=== PATIENT | male | born 1990 | race Caucasian/White ===

== ENCOUNTER 2017-04-25 08:41 | Emergency (ER) | payer OTHER ==
[2017-04-25 09:00] VITALS: BP 129/67; PULSE 87; RESP 16; TEMP 97.2
--- NOTE | 2017-04-25 09:35 | ED ---
Back Pain HPI - General Chief Complaint: Back Pain/Injury Stated Complaint: Hx L1 Fx, tingling in left leg Time Seen by Provider: 04/25/17 09:06 Source: patient, RN notes reviewed, old records reviewed Limitations: no limitations - History of Present Illness Initial Comments: 26-year-old male presents emergency department today chief complaint of increased lower back pain, and numbness and tingling down his left leg. Patient reports that he was sledding on April 12, and he has signs. He reports that he continue back pain so he was evaluated which [facility] on April 15. He told me is an L1 compression fracture. He reports he's been out of his pain medication since that time, he is supposed to follow-up with his primary care provider. Is not discharged any braces. Patient reports that yesterday at work he was working [email or web address], and did a lot of twisting and lifting. He states that today he complains of worsening pain and some weakness in his left leg. He denies any saddle anesthesias. Patient reports that he's had no fever or chills. Patient states that he has an appointment with his primary care doctor in the next 4 days. Patient denies any other associated symptoms. He is concerned with the worsening numbness and tingling in that that needed to be reevaluated. Patient reports that he did walk here. - Related Data Previous Rx's Medication Instructions Recorded Dexamethasone 0.75 mg PO DAILY #12 tab 04/25/17 Ibuprofen [Motrin] 800 mg PO TID #20 tab 04/25/17 Allergies Allergy/AdvReac Type Severity Reaction Status Date / Time Penicillins Allergy Anaphylaxis Verified 04/25/17 09:00 Sulfa (Sulfonamide Allergy Anaphylaxis Verified 04/25/17 09:00 Antibiotics) Review of Systems ROS Statement: Those systems with pertinent positive or pertinent negative responses have been documented in the HPI. ROS Other: All systems not noted in ROS Statement are negative. Past Medical History Additional Past Medical History / Comment(s): kidney stones History of Any Multi-Drug Resistant Organisms: None Reported Past Surgical History: No Surgical Hx Reported Past Psychological History: No Psychological Hx Reported Smoking Status: Current every day smoker Past Alcohol Use History: Rare Past Drug Use History: None Reported General Exam - General Exam Comments Initial Comments: 26-year-old male. No distress. Limitations: no limitations General appearance: alert, in no apparent distress Head exam: Present: atraumatic, normocephalic, normal inspection Eye exam: Present: normal appearance, PERRL, EOMI. Absent: scleral icterus, conjunctival injection, periorbital swelling ENT exam: Present: normal exam, mucous membranes moist Neck exam: Present: normal inspection. Absent: tenderness, meningismus, lymphadenopathy Respiratory exam: Present: normal lung sounds bilaterally. Absent: respiratory distress, wheezes, rales, rhonchi, stridor Cardiovascular Exam: Present: regular rate GI/Abdominal exam: Present: soft, normal bowel sounds. Absent: distended, tenderness, guarding, rebound, rigid Extremities exam: Present: normal inspection, full ROM, normal capillary refill , other (Full ROM and strength and rOM of bilateral lower extremities. Patient reports that he feels as if Left leg is weaker, but no change in strength noted. ). Absent: tenderness, pedal edema, joint swelling, calf tenderness Back exam: Present: normal inspection, full ROM, vertebral tenderness (Lumbar spinal tenderness, left sided lumbar paraspinal tenderness.) Neurological exam: Present: alert, oriented X3, CN II-XII intact Psychiatric exam: Present: normal affect, normal mood Skin exam: Present: warm, dry, intact, normal color. Absent: rash Course Vital Signs 04/25/17 08:57 Temperature 97.2 F L Pulse Rate 87 Respiratory 16 Rate Blood Pressure 129/67 O2 Sat by Pulse 99 Oximetry Medical Decision Making - Medical Decision Making 26-year-old male presents emergency department today chief complaint of increased lower back pain, and numbness and tingling down his left leg. Patient reports that he was sledding on April 12, and he has signs. He reports that he continue back pain so he was evaluated which [facility] on April 15. He told me is an L1 compression fracture. He reports he's been out of his pain medication since that time, he is supposed to follow-up with his primary care provider. Patient reports that yesterday at work he was working [email or web address], and did a lot of twisting and lifting. He states that today he complains of worsening pain and some weakness in his left leg. Patient walked to ED for evaluation. Full strengthnoted in bilateral lower extremity and sensation intact. He denies saddle anesthesias. Patient has no foot drop or other neurodeficits. Patient xray shows no acute abnormality. Patient informed from results of CT scan at [facility] that was requested and repeat image today. Dsicussed starting patient on steroids for neuropathy symptom, as well as antifinflammatory mediation. Patient requests excuse note for probation. Patient discharged with follow up with crop specialist and PCP. - Radiology Data Radiology results: report reviewed CT report from [facility] on 04/17 shows : Mild disc bulging seen lumbar spine with mild anterior thecal sac compression discussed above. No stenosis present. May be minimal exaggeration of very mild wedge deformity of L1 no acute fracture however is identified. Correlate with location of patient's pain. Today lumbar spine xray shows no acute abnormalities. Disposition Clinical Impression: Lumbar back pain with radiculopathy affecting left lower extremity Disposition: HOME SELF-CARE Condition: Good Instructions: Acute Low Back Pain (ED) Additional Instructions: Patient should follow-up with back specialist. Return to the emergency department if any alarming signs or symptoms occur. Prescriptions: Dexamethasone 0.75 mg PO DAILY #12 tab Ibuprofen [Motrin] 800 mg PO TID #20 tab Referrals: None,Stated [Primary Care Provider] - 1-2 days Davie Fuentes MD [REFERRING] - 1-2 days Frieda Ferraro MD [STAFF PHYSICIAN] - 1-2 days Amado Suarez DO [Doctor of Osteopathic Medicine] - 1-2 days Time of Disposition: 11:12
--- NOTE | 2017-04-25 10:39 | XR ---
EXAMINATION TYPE: XR lumbar spine 2 or 3V , 3 VIEWS DATE OF EXAM ORDERED: 04/25/2017 HISTORY: Pain. COMPARISON: None. FINDINGS: Vertebral body height and alignment are maintained. There is no spondylolysis or spondylol isthesis. The facets are unremarkable. The pedicles are intact. IMPRESSION: NO ACUTE OSSEOUS LESION.
== END 2017-04-25 11:22 | disposition home or self-care (01) ==
LOC: EC 08:41
DX: M54.16 Radiculopathy, lumbar region (principal); M51.16 Intervertebral disc disorders with radiculopathy, lumbar region; F17.200 Nicotine dependence, unspecified, uncomplicated; Z88.0 Allergy status to penicillin; Z88.2 Allergy status to sulfonamides
CPT/HCPCS: 72100; 99284

== ENCOUNTER 2017-06-27 00:18 | Emergency (ER) | payer OTHER ==
[2017-06-27 00:26] VITALS: RESP 16
--- NOTE | 2017-06-27 00:51 | ED ---
Psych HPI - General Chief Complaint: Psychiatric Symptoms Stated Complaint: Depression Time Seen by Provider: 06/27/17 00:35 Source: patient Mode of arrival: ambulatory - History of Present Illness Initial Comments: 26 year-old male patient presents to the emergency department today with suicidal ideation. Patient states that recently he has been feeling more down and depressed. He states that he has been thinking about killing himself. He states that today he made his friend remove the gun that was in the closet where he stays. He states that he had no specific plan to use it but was concerned that he may be tempted. He denies any hallucinations. Denies any alcohol or drug use. Denies any recent use of antidepressant medication. States he is sleeping, eating, and drinking without difficulty. Denies any previous suicide attempt. Denies any previous hospital admissions for similar symptoms. Denies any current physical symptoms. Patient denies any recent rash , fever, chills, shortness breath, chest pain, abdominal pain, nausea, vomiting , diarrhea, constipation, back pain, numbness, tingling, dizziness, weakness, hematuria, dysuria, urinary urgency, urinary frequency, headache, visual changes , or any other complaints. - Related Data Home Medications Medication Instructions Recorded Confirmed Aspirin 81 mg PO ONCE 05/24/17 05/24/17 Ibuprofen 400 mg PO ONCE 05/24/17 05/24/17 Allergies Allergy/AdvReac Type Severity Reaction Status Date / Time Penicillins Allergy Anaphylaxis Verified 05/24/17 09:14 Sulfa (Sulfonamide Allergy Anaphylaxis Verified 05/24/17 09:14 Antibiotics) Review of Systems ROS Statement: Those systems with pertinent positive or pertinent negative responses have been documented in the HPI. ROS Other: All systems not noted in ROS Statement are negative. Past Medical History Additional Past Medical History / Comment(s): kidney stones History of Any Multi-Drug Resistant Organisms: None Reported Past Surgical History: No Surgical Hx Reported Past Psychological History: Depression Smoking Status: Current every day smoker Past Alcohol Use History: Rare Past Drug Use History: None Reported General Exam Limitations: no limitations General appearance: alert, in no apparent distress, other (This is a well- developed, well-nourished male patient in no acute distress. Vital signs upon presentation are temperature 96.9F, pulse 97, respirations 16, blood pressure 155/95, pulse ox 98% on room air.) Eye exam: Present: normal appearance, PERRL, EOMI. Absent: scleral icterus, conjunctival injection, periorbital swelling ENT exam: Present: normal exam, normal oropharynx, mucous membranes moist Respiratory exam: Present: normal lung sounds bilaterally. Absent: respiratory distress, wheezes, rales, rhonchi, stridor Cardiovascular Exam: Present: regular rate, normal rhythm, normal heart sounds. Absent: systolic murmur, diastolic murmur, rubs, gallop, clicks GI/Abdominal exam: Present: soft, normal bowel sounds. Absent: distended, tenderness, guarding, rebound, rigid Neurological exam: Present: alert, oriented X3, CN II-XII intact Psychiatric exam: Present: depressed Skin exam: Present: warm, dry, intact, normal color. Absent: rash Course Vital Signs 06/27/17 00:22 Temperature 96.9 F L Pulse Rate 97 Respiratory 16 Rate Blood Pressure 155/95 O2 Sat by Pulse 98 Oximetry Medical Decision Making - Medical Decision Making 26-year-old male patient presented to the emergency department today for evaluation of depression and suicidal ideation. Patient denied any specific plan to take his life. Denies any homicidal thoughts. Patient was cleared medically and did have an evaluation by emergency psychiatric services. They did discuss the case with the psychiatrist who feels the patient does not currently meet inpatient criteria. Patient was given a list of outpatient referrals and has a plan to follow up with [facility] on Thursday. We did discuss return parameters in detail. He is instructed to return here immediately if his symptoms change or worsen at all. He is instructed to follow-up with his primary care physician as well. He is instructed to return here for any other new, worsening, or concerning symptoms. He verbalizes understanding and agrees with this plan. - Lab Data Lab Results 06/27/17 Range/Units 01:07 Urine Opiates Screen Not Detected (NotDetected) Ur Oxycodone Screen Not Detected (NotDetected) Urine Methadone Screen Not Detected (NotDetected) Ur Propoxyphene Screen Not Detected (NotDetected) Ur Barbiturates Screen Not Detected (NotDetected) U Tricyclic Antidepress Not Detected (NotDetected) Ur Phencyclidine Scrn Not Detected (NotDetected) Ur Amphetamines Screen Not Detected (NotDetected) U Methamphetamines Scrn Not Detected (NotDetected) U Benzodiazepines Scrn Not Detected (NotDetected) Urine Cocaine Screen Not Detected (NotDetected) U Marijuana (THC) Screen Not Detected (NotDetected) Disposition Clinical Impression: Suicidal ideation Disposition: HOME SELF-CARE Condition: Good Instructions: Depression (ED), Suicide Prevention for Adults (ED) Additional Instructions: Follow-up outpatient with mental health services. Return here immediately for any change or worsening symptoms. Referrals: Davie Fuentes MD [Primary Care Provider] - 1-2 days Time of Disposition: 02:29
[2017-06-27 01:32] LABS: Amphetamine Screen,Urine Not Detected (NotDetected); Barbiturate Screen,Urine Not Detected (NotDetected); Benzodiazepines Screen,Urine Not Detected (NotDetected); Cocaine Screen,Urine Not Detected (NotDetected); Methadone Screen, Urine Not Detected (NotDetected); Opiate Screen,Urine Not Detected (NotDetected); Oxycodone Screen, Urine Not Detected (NotDetected); Phencyclidine Screen,Urine Not Detected (NotDetected); Tricyclic Antidepressant,Urine Not Detected (NotDetected); Urn Cannabinoid Scrn Not Detected (NotDetected)
[2017-06-27 02:40] VITALS: BP 136/80; PULSE 61; TEMP 97.6
== END 2017-06-27 02:44 | disposition home or self-care (01) ==
LOC: EC 00:18
DX: R45.851 Suicidal ideations (principal); F32.9 Major depressive disorder, single episode, unspecified; F17.200 Nicotine dependence, unspecified, uncomplicated; Z79.1 Long term (current) use of non-steroidal anti-inflammatories (NSAID); Z79.82 Long term (current) use of aspirin; Z88.0 Allergy status to penicillin; Z88.2 Allergy status to sulfonamides
CPT/HCPCS: 80306; 82075; 99284

== ENCOUNTER 2017-09-15 23:17 | Emergency (ER) | payer OTHER ==
[2017-09-15] MEDS ORDERED: MORPHINE SULFATE 4 MG/ML SYRINGE IV STA (23:46)
[2017-09-15] MEDS ORDERED: ONDANSETRON 4 MG/2 ML VIAL IVP STA (23:46)
[2017-09-15] MEDS ORDERED: SODIUM CHLORIDE 0.9% 1,000 ML IV STA (23:46)
[2017-09-15] MEDS ORDERED: KETOROLAC 30 MG/ML 1 ML VIAL IVP STA (23:46)
[2017-09-16 00:24] LABS: Appearance,Urine Clear (Clear); Bilirubin,Urine Negative (Negative); Blood,Urine Negative (Negative); Color,Urine Light Yellow; Glucose,Urine (UA) Negative (Negative); Ketones,Urine Negative (Negative); Leukocyte Esterase,Urine Negative (Negative); Nitrite,Urine Negative (Negative); PH, Urine 5.5 (5.0-8.0); Protein,Urine Negative (Negative); Specific Gravity,Urine 1.009 (1.001-1.035); Urobilinogen,Urine <2.0 mg/dL (<2.0)
--- NOTE | 2017-09-16 00:40 | CT ---
EXAMINATION TYPE: CT abdomen pelvis wo con DATE OF EXAM: 09/16/2017 COMPARISON: 12/19/2010 HISTORY: Prior on 2010, left flank pain, difficulty urinating, history of renal stones, renal stone protocol CT DLP: 1292.90 mGycm Automated exposure control for dose reduction was used. TECHNIQUE: Helical acquisition of images was performed from the lung bases through the pelvis. FINDINGS: Lung bases are clear of consolidation. There is no pleural effusion. There is no pericardial effusion . Liver and spleen appear normal. Bile ducts are not dilated. Gallbladder appears normal. There is no a drenal mass. Kidneys have normal size and contour. The ureters are not dilated. I see no definite hyd ronephrosis. I see no intestinal wall thickening. There are no dilated loops. Appendix appears normal . There is no ascites. Bladder distends smoothly. There is a phlebolith in the pelvis on the left sonia e that is new compared to old exam. Bladder distends smoothly. I see no bony destructive process. IMPRESSION: NO EVIDENCE OF RENAL STONE OR OBSTRUCTION. THERE IS CLEARING OF THE DISTAL RIGHT URETERAL CALCULUS CO MPARED TO OLD EXAM. NO EVIDENCE OF LEFT-SIDED RENAL OBSTRUCTION. NORMAL APPENDIX.
--- NOTE | 2017-09-16 01:54 | ED ---
General Adult HPI - General Chief complaint: Urogenital Stated complaint: l flank pain Time Seen by Provider: 09/15/17 23:36 Source: patient Mode of arrival: ambulatory Limitations: no limitations - History of Present Illness Initial comments: 26 years old male comes in with a left-sided flank pain, he has a history of kidney stone she said her left flank pain started few [place] it starts on the left flank area it radiates down to the left groin area denies any fever no chills does complain about some dysuria and some frequency and urgency. Denies any diarrhea. He System is otherwise unremarkable - Related Data Home Medications Medication Instructions Recorded Confirmed No Known Home Medications [No 09/15/17 09/15/17 Known Home Medications] Allergies Allergy/AdvReac Type Severity Reaction Status Date / Time Penicillins Allergy Anaphylaxis Verified 09/15/17 23:43 Sulfa (Sulfonamide Allergy Anaphylaxis Verified 09/15/17 23:43 Antibiotics) Review of Systems ROS Statement: Those systems with pertinent positive or pertinent negative responses have been documented in the HPI. ROS Other: All systems not noted in ROS Statement are negative. Past Medical History Additional Past Medical History / Comment(s): kidney stones History of Any Multi-Drug Resistant Organisms: None Reported Past Surgical History: No Surgical Hx Reported Past Psychological History: Depression Smoking Status: Current every day smoker Past Alcohol Use History: None Reported Past Drug Use History: None Reported General Exam - General Exam Comments Initial Comments: General: The patient is awake and alert, in no distress, and does not appear acutely ill. Skin: Skin is warm and dry and no rashes or lesions are noted. Eye: Pupils are equal, round and reactive to light, extra-ocular movements are intact; there is normal conjunctiva bilaterally. Ears, nose, mouth and throat: There are moist mucous membranes and no oral lesions. Neck: The neck is supple, there is no tenderness or JVD. Cardiovascular: There is a regular rate and rhythm. No murmur, rub or gallop is appreciated. Respiratory: To auscultation bilateral, no wheezing no rhonchi no distress respiratory rodriguez noticed Gastrointestinal: We tender over the left flank area and the left paraumbilical area, positive bowel sounds no guarding no rebounds no hepatosplenomegaly noticed Back: There is no tenderness to palpation in the midline. There is no obvious deformity. Musculoskeletal: Normal ROM, no tenderness, There is no pedal edema. There is no calf tenderness or swelling. No cords were appreciated. Neurological: CN II-XII intact, Cranial nerves III through XII are intact. There are no obvious motor or sensory deficits. Coordination appears grossly intact. Speech is normal. Psychiatric: Cooperative, appropriate mood & affect, normal judgment. Limitations: no limitations Course Vital Signs 09/15/17 23:29 Temperature 98.2 F Pulse Rate 95 Respiratory 18 Rate Blood Pressure 154/85 O2 Sat by Pulse 98 Oximetry He was reassessed at 1:40 AM, CT abdomen is unremarkable urinalysis didn't show any hematuria, patient is comfortable, no pain at this point he be gone home and he will use Tylenol or Motrin for pain Medical Decision Making - Lab Data Lab Results 09/15/17 Range/Units 23:51 Urine Color Light Yellow Urine Appearance Clear (Clear) Urine pH 5.5 (5.0-8.0) Ur Specific Ramsey 1.009 (1.001-1.035) Urine Protein Negative (Negative) Urine Glucose (UA) Negative (Negative) Urine Ketones Negative (Negative) Urine Blood Negative (Negative) Urine Nitrite Negative (Negative) Urine Bilirubin Negative (Negative) Urine Urobilinogen <2.0 (<2.0) mg/dL Ur Leukocyte Esterase Negative (Negative) Disposition Clinical Impression: Left flank pain Disposition: HOME SELF-CARE Is patient prescribed a controlled substance at d/c from ED?: No When asked, does pt state using other controlled substances?: No If prescribed controlled substance>3 days was MAPS reviewed?: No If opioid is for acute pain is fill amount 7 days or less?: No If Rx opioid, was Start Talking consent form obtained?: No Referrals: Davie Fuentes MD [Primary Care Provider] - 1-2 days
[2017-09-16 02:10] VITALS: BP 137/59; PULSE 69; RESP 16; TEMP 98.1
== END 2017-09-16 02:10 | disposition home or self-care (01) ==
LOC: EC 23:17
DX: R10.33 Periumbilical pain (principal); R30.0 Dysuria; R35.0 Frequency of micturition; F17.200 Nicotine dependence, unspecified, uncomplicated; Z88.0 Allergy status to penicillin; Z88.2 Allergy status to sulfonamides
CPT/HCPCS: 81003; 74176; 99284; 96374; 96375 ×2; 96361; J2270; J2405; J1885

== ENCOUNTER 2018-01-13 16:33 | Emergency (ER) | payer OTHER ==
[2018-01-13 16:38] VITALS: BP 141/92; PULSE 97; RESP 18; TEMP 98.1
[2018-01-13] MEDS ORDERED: GELATIN SPONGE,ABSORB (LARGE) 1 EACH SPONGE TOPICAL STA (17:00)
[2018-01-13] MEDS ORDERED: DIPH,PERTUS(ACELL)TETVAC-LF 0.5 ML VIAL IM ONE (17:12)
[2018-01-13] MEDS ORDERED: IBUPROFEN 800 MG TAB PO STA (17:12)
--- NOTE | 2018-01-13 17:31 | ED ---
Wound/Laceration HPI - General Chief Complaint: Wound/Laceration Stated Complaint: [facility] - finger lac Time Seen by Provider: 01/13/18 17:09 Source: patient Mode of arrival: ambulatory Limitations: no limitations - History of Present Illness Initial Comments: 27-year-old male who denies past medical history presents today for chief complaint of laceration to the tip of the left middle finger. 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 Patient states that this superficial. Patient was unable to get the bleeding stopped with pressure after 30 minutes she presented to the emergency department for evaluation. Upon arrival there was mild active bleeding. The avulsion of skin appear to be superficial. Patient denies any numbness, tingling, loss sensation or decreased range of motion of the digits of the left hand. Patient denies any other areas of injury. Patient is not sure of his last tetanus. Remainder ROS negative patient denies any recent fever, chills, shortness of breath, chest pain, back pain, abdominal pain, nausea or vomiting, numbness or tingling, dysuria or hematuria, constipation or diarrhea, headaches or visual changes, or any other complaints. Upon arrival pt VS stable. - Related Data Home Medications Medication Instructions Recorded Confirmed No Known Home Medications 09/15/17 09/15/17 Allergies Allergy/AdvReac Type Severity Reaction Status Date / Time Penicillins Allergy Anaphylaxis Verified 01/13/18 16:38 Sulfa (Sulfonamide Allergy Anaphylaxis Verified 01/13/18 16:38 Antibiotics) Review of Systems ROS Statement: Those systems with pertinent positive or pertinent negative responses have been documented in the HPI. ROS Other: All systems not noted in ROS Statement are negative. Constitutional: Denies: fever, chills Eyes: Denies: eye pain ENT: Denies: ear pain, throat pain Respiratory: Denies: cough, dyspnea, wheezes, hemoptysis Cardiovascular: Denies: chest pain, palpitations, dyspnea on exertion Endocrine: Denies: fatigue Gastrointestinal: Denies: abdominal pain, nausea, vomiting, diarrhea, constipation Genitourinary: Denies: urgency Musculoskeletal: Denies: as per HPI, back pain Skin: Reports: as per HPI (superficial skin avulsion of the left middle fingertip). Denies: rash Neurological: Denies: headache, weakness, numbness, paresthesias Past Medical History Past Medical History: No Reported History Additional Past Medical History / Comment(s): kidney stones History of Any Multi-Drug Resistant Organisms: None Reported Past Surgical History: No Surgical Hx Reported Past Psychological History: Depression Smoking Status: Current every day smoker Past Alcohol Use History: None Reported Past Drug Use History: None Reported General Exam - General Exam Comments Initial Comments: General: The patient is awake and alert, in no distress, and does not appear acutely ill. Eye: +3 pupils are equal, round and reactive to light, extra-ocular movements are intact. No nystagmus. There is normal conjunctiva bilaterally. No signs of icterus. Cardiovascular: There is a regular rate and rhythm. No murmur, rub or gallop is appreciated. Respiratory: Lungs are clear to auscultation, respirations are non-labored, breath sounds are equal. No wheezes, stridor, rales, or rhonchi. Musculoskeletal: Superficial skin avulsion of the left middle finger. No exposure of underlying structure. Mild bleeding. Normal ROM, no tenderness. Strength 5/5 at the MCP, DIP and PIP joints of the left hand/digits. Sensation intact of the digits. Radial pulses equal bilaterally 2+. Capillary refill < 2seconds. Neurological: A&O x 3. CN II-XII intact, There are no obvious motor or sensory deficits. Coordination appears grossly intact. Speech is normal. Skin: Skin is warm and dry and no rashes or lesions are noted. Psychiatric: Cooperative, appropriate mood & affect, normal judgment. Limitations: no limitations Course Vital Signs 01/13/18 16:34 Temperature 98.1 F Pulse Rate 97 Respiratory 18 Rate Blood Pressure 141/92 O2 Sat by Pulse 99 Oximetry Medical Decision Making - Medical Decision Making TDaP updated. PE revealed superficial skin avulsion of left middle finger, no exposure of underlying structure or FB. Mild active bleeding. Gelfoam was applied and pressure. Hemostasis obtained. Wound cleansed with sterile water and iodine, irrigated. Sterile bandage applied. Pt given instruction to f/u with PCP in 1-2 days. At this time I feel pt is stable for d/c. Pt instructed to Tylenol and ibuprofen for pain mgmt as needed. Pt and Dr. Silverman agreed with impression and plan. pt d/c in stable condition. Disposition Clinical Impression: Avulsion of skin of finger Narrative: left middle finger Disposition: HOME SELF-CARE Condition: Good Instructions: Finger Laceration (ED) Additional Instructions: Please use medication as discussed. Please follow-up with family doctor in the next 2 days of symptoms have not improved. Please return to emergency room if the symptoms increase or worsen or for any other concerns. Is patient prescribed a controlled substance at d/c from ED?: No Referrals: Davie Fuentes MD [Primary Care Provider] - 1-2 days Time of Disposition: 17:30
== END 2018-01-13 17:49 | disposition home or self-care (01) ==
LOC: EC 16:33
DX: S61.213A Laceration without foreign body of left middle finger without damage to nail, initial encounter (principal); F17.200 Nicotine dependence, unspecified, uncomplicated; Z23 Encounter for immunization; Z88.0 Allergy status to penicillin; Z88.2 Allergy status to sulfonamides; W26.0XXA Contact with knife, initial encounter; Y92.69 Other specified industrial and construction area as the place of occurrence of the external cause; Y99.0 Civilian activity done for income or pay
CPT/HCPCS: 90471; 90715; 99282

== ENCOUNTER 2020-11-03 18:28 | Emergency (ER) | payer BC, OTHER ==
[2020-11-03 18:32] VITALS: BP 140/77; PULSE 73; RESP 20; TEMP 98
--- NOTE | 2020-11-03 19:25 | ED ---
General Adult HPI - General Chief complaint: Extremity Injury, Lower Stated complaint: Lt Toe Injury Time Seen by Provider: 11/03/20 18:40 Source: patient, RN notes reviewed, old records reviewed Mode of arrival: ambulatory Limitations: no limitations - History of Present Illness Initial comments: Patient is a 30-year-old male with no significant past medical history presents emergency Department after stubbing his toe. Patient states he struck his toe while walking and mopping the floor yesterday. He has been able to ambulate since that time. 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 Patient states it is the left big toe. He denies any other injuries. Denies falling or hitting his head. Patient seeking x-rays. He states he has been taking ibuprofen at home and declines any analgesia at this time. - Related Data Home Medications Medication Instructions Recorded Confirmed No Known Home Medications 09/15/17 09/15/17 Allergies Allergy/AdvReac Type Severity Reaction Status Date / Time Penicillins Allergy Anaphylaxis Verified 11/03/20 18:32 Sulfa (Sulfonamide Allergy Anaphylaxis Verified 11/03/20 18:32 Antibiotics) Review of Systems ROS Statement: Those systems with pertinent positive or pertinent negative responses have been documented in the HPI. Review of Systems: CONST: Denies fever EYES: Denies blurry vision ENT: Denies nasal congestion C/V: Denies Chest pain RESP: Denies shortness of breath GI: Denies abdominal pain : Denies dysuria SKIN: Denies rash. MSK: Joint pain NEURO: Denies headache ROS Other: All systems not noted in ROS Statement are negative. Past Medical History Past Medical History: No Reported History Additional Past Medical History / Comment(s): kidney stones History of Any Multi-Drug Resistant Organisms: None Reported Past Surgical History: No Surgical Hx Reported Past Psychological History: Depression Smoking Status: Never smoker Past Alcohol Use History: None Reported Past Drug Use History: None Reported General Exam - General Exam Comments Initial Comments: General: Appears in no acute distress. HEAD: Normal with no signs of head trauma. EYES: EOMI ENT: Hearing grossly intact RESPIRATORY: No increased work of breathing C/V: Regular rate and rhythm. Peripheral pulses are 2+ and intact throughout. There is good capillary refill of the left great toe and nail bed. ABD: Abdomen is not distended. EXT: Patient does have a purple left great toe, over the dorsal aspect of the distal metatarsal joint. He does have reduced range of motion secondary to pain, both dorsal and plantar flexion. He is able to walk without difficulty. SKIN: Patient has purple bruising of the left great toe. NEURO: Alert and oriented 4. Patient has some slight decreased sensation to light sensation over the left great toe. Limitations: no limitations Course Vital Signs 11/03/20 18:30 Temperature 98 F Pulse Rate 73 Respiratory 20 Rate Blood Pressure 140/77 O2 Sat by Pulse 99 Oximetry Medical Decision Making - Medical Decision Making Based on the patient's presentation and physical exam, I'm concerned about possible emily traumatic injury to the patient's left foot. We will obtain an x-ray of the left foot. He declines analgesia at this time. Patient's x-ray was negative for any acute fracture or subluxation. On reevaluation, I did discuss the findings with the patient explained that there is no acute fracture. I explained that as long as he is able to ambulate, which he has without difficulty, he can be discharged home safely. We will provide with orthopedics for follow-up. He was in agreement with this plan. I instructed the patient to follow up with their PCP in the next 3 days. I provided contact information for follow-up with orthopedics.. I explained that the patient should return to the emergency department if they experience any worsening symptoms. Strict return precautions were discussed with the patient. The patient expressed understanding of these instructions. I answered all questions that the patient had. The patient was discharged home in good condition with their prescriptions and follow up information. Disposition Clinical Impression: Toe pain Disposition: HOME SELF-CARE Condition: Good Instructions (If sedation given, give patient instructions): Swollen Joint (ED) Is patient prescribed a controlled substance at d/c from ED?: No Referrals: Jarad Love MD [Primary Care Provider] - 1-2 days Primo Warner DO [Doctor of Osteopathic Medicine] - 1-2 days
--- NOTE | 2020-11-03 20:10 | XR ---
EXAMINATION TYPE: XR foot complete LT DATE OF EXAM: 11/03/2020 COMPARISON: NONE HISTORY: Pain TECHNIQUE: 3 views FINDINGS: Metatarsals are intact. I see no fracture nor dislocation. There is Achilles calcaneal spur ring. No erosions. IMPRESSION: Calcaneal spurring. No fracture.
== END 2020-11-03 20:25 | disposition home or self-care (01) ==
LOC: EC 18:28
DX: M79.675 Pain in left toe(s) (principal); Z88.0 Allergy status to penicillin; Z88.2 Allergy status to sulfonamides; W22.8XXA Striking against or struck by other objects, initial encounter; Y93.E5 Activity, floor mopping and cleaning
CPT/HCPCS: 99284

== ENCOUNTER 2021-01-28 04:55 | Emergency (ER) | payer BC ==
[2021-01-28 05:01] VITALS: BP 147/96; PULSE 89; RESP 18; TEMP 97.9
[2021-01-28] MEDS ORDERED: traMADol 50 MG STARTER PACK 3 TAB BTL PO STA (05:37)
[2021-01-28] MEDS ORDERED: ACET/COD 300 MG/30 MG STARTER PACK 6 TAB BTL PO STA (05:37)
[2021-01-28] MEDS ORDERED: CLINDAMYCIN 150 MG CAP PO STA (05:39)
--- NOTE | 2021-01-28 05:40 | ED ---
ENT HPI - General Chief complaint: Dental/Oral Stated complaint: Dental Pain Time Seen by Provider: 01/28/21 05:09 Source: patient, RN notes reviewed, old records reviewed Mode of arrival: ambulatory Limitations: no limitations - History of Present Illness Initial comments: This is a 30-year-old male DF for evaluation of dental pain history of dental ca ryann history of dental abscess. No fevers no difficulty eating drinking chewing or opening his mouth. Prior dental extractions. No recent dental surgery MD complaint: tooth pain -: hour(s) Location: tooth # Severity: moderate Severity scale (1-10): 4 Quality: burning Consistency: constant Improves with: none Worsens with: none Context- Dental: history of dental caries Associated Symptoms: cough, gum swelling, toothache - Related Data Previous Rx's Medication Instructions Recorded clindamycin HCL [Cleocin] 300 mg PO Q6HR #40 cap 01/28/21 Allergies Allergy/AdvReac Type Severity Reaction Status Date / Time Penicillins Allergy Anaphylaxis Verified 01/28/21 05:01 Sulfa (Sulfonamide Allergy Anaphylaxis Verified 01/28/21 05:01 Antibiotics) Review of Systems ROS Statement: Those systems with pertinent positive or pertinent negative responses have been documented in the HPI. ROS Other: All systems not noted in ROS Statement are negative. Past Medical History Past Medical History: No Reported History Additional Past Medical History / Comment(s): kidney stones, adhd History of Any Multi-Drug Resistant Organisms: None Reported Past Surgical History: No Surgical Hx Reported Past Psychological History: Depression Smoking Status: Never smoker Past Alcohol Use History: None Reported Past Drug Use History: None Reported Course Vital Signs 01/28/21 04:58 Temperature 97.9 F Pulse Rate 89 Respiratory 18 Rate Blood Pressure 147/96 O2 Sat by Pulse 97 Oximetry - Reevaluation(s) Reevaluation #1: Medical record is reviewed Patient symptoms are improved here in the ER Patient informed results and questions answered Medical Decision Making - Medical Decision Making Male DF for evaluation history of dental caries with history of dental abscess. Patient can be discharged home with pain control and antibiotics. Disposition Clinical Impression: Dental caries, Dental abscess Disposition: HOME SELF-CARE Instructions (If sedation given, give patient instructions): Dental Abscess (ED), Toothache (ED) Prescriptions: clindamycin HCL [Cleocin] 300 mg PO Q6HR #40 cap Is patient prescribed a controlled substance at d/c from ED?: No Referrals: Jarad Love MD [Primary Care Provider] - 1-2 days
== END 2021-01-28 06:05 | disposition home or self-care (01) ==
LOC: EC 04:55
DX: K02.9 Dental caries, unspecified (principal); K04.7 Periapical abscess without sinus; Z88.0 Allergy status to penicillin; Z88.2 Allergy status to sulfonamides
CPT/HCPCS: 99282

== ENCOUNTER 2021-09-29 17:21 | Emergency (ER) | payer BC ==
[2021-09-29 17:27] VITALS: BP 129/82; PULSE 78; RESP 16; TEMP 97.7
[2021-09-29] MEDS ORDERED: Acetaminophen-Codeine 300-30mg TAB PO STA (17:40)
--- NOTE | 2021-09-29 17:50 | ED ---
ENT HPI - General Chief complaint: Dental/Oral Stated complaint: Oral pain Time Seen by Provider: 09/29/21 17:31 Source: patient, RN notes reviewed Mode of arrival: ambulatory Limitations: no limitations - History of Present Illness Initial comments: Patient is a 30-year-old male presents to emergency room with complaints of worsening left lower molar pain. He reports that he was eating peanut butter crackers approximately 1 week ago and he noticed a chip of his tooth came off. He has had poor dictation for quite some time with plans of too th removal unfortunately he has not been able to afford to schedule a dental appointment at this time. He states that over the last 24 hours he has had an increase in pain, decrease in appetite and increase in lymph node swelling underneath the affected tooth region. He has some heat and cold sensitivity. He has been taking ibuprofen and naproxen to help with pain without relief. He reports that he feels warm at times but denies checking his temperature. He denies any chills, nausea, or vomiting. Though his appetite is decreased he is able to take in oral solids and liquids without complications. With the exception of his poor dentition history he denies any significant past medical history. He denies any other complaints or concerns at this time. - Related Data Previous Rx's Medication Instructions Recorded clindamycin HCL [Cleocin] 300 mg PO Q6HR #40 cap 01/28/21 clindamycin HCL [Cleocin] 300 mg PO Q6HR 7 Days #28 cap 09/29/21 Allergies Allergy/AdvReac Type Severity Reaction Status Date / Time Penicillins Allergy Anaphylaxis Verified 09/29/21 17:26 Sulfa (Sulfonamide Allergy Anaphylaxis Verified 09/29/21 17:26 Antibiotics) Review of Systems ROS Statement: Those systems with pertinent positive or pertinent negative responses have been documented in the HPI. ROS Other: All systems not noted in ROS Statement are negative. Past Medical History Past Medical History: No Reported History Additional Past Medical History / Comment(s): kidney stones, adhd History of Any Multi-Drug Resistant Organisms: None Reported Past Surgical History: No Surgical Hx Reported Past Psychological History: Depression Smoking Status: Current every day smoker, Never smoker Past Alcohol Use History: Occasional Past Drug Use History: Marijuana General Exam Limitations: no limitations General appearance: alert, in no apparent distress Head exam: Present: atraumatic, normocephalic, normal inspection Eye exam: Present: normal appearance, PERRL, EOMI. Absent: scleral icterus, conjunctival injection, periorbital swelling ENT exam: Present: mucous membranes moist Expanded Mouth exam: Present: normal external inspection, tongue normal Teeth exam: Present: dental caries (multiple), fractured tooth # (Left lower molar # 17), dental tenderness # (Left lower molar #17) Neck exam: Present: tenderness, lymphadenopathy Respiratory exam: Present: normal lung sounds bilaterally. Absent: respiratory distress, accessory muscle use Cardiovascular Exam: Present: regular rate, normal rhythm, normal heart sounds. Absent: systolic murmur, diastolic murmur, rubs, gallop, clicks GI/Abdominal exam: Present: soft, normal bowel sounds. Absent: distended, tenderness, guarding, rebound, rigid Rectal exam: Present: deferred Extremities exam: Present: normal inspection. Absent: pedal edema, joint swelling Neurological exam: Present: alert, oriented X3, CN II-XII intact Psychiatric exam: Present: normal affect, normal mood Skin exam: Present: warm, dry, intact, normal color. Absent: rash Course Vital Signs 09/29/21 17:24 Temperature 97.7 F Pulse Rate 78 Respiratory 16 Rate Blood Pressure 129/82 O2 Sat by Pulse 100 Oximetry Medical Decision Making - Medical Decision Making Vital signs stable no indication for further workup. X-ray negative for fracture. Antibiotic ALLERGIES noted. Will give clindamycin along with Tylenol 3 starter pack for pain. Tolerated Tylenol 3 in the ER well with improved pain control. - Radiology Data Radiology results: report reviewed, image reviewed X-ray of the mandible 2 view impression with no fracture seen Disposition Clinical Impression: Dental abscess, Fracture of tooth Disposition: HOME SELF-CARE Condition: Fair Instructions (If sedation given, give patient instructions): Dental Abscess (ED) Additional Instructions: Please return to the Emergency Department if symptoms worsen or any other concerns. Patient advised to follow-up with his dentist as soon as possible. Requesting note for school work. Will give note to resume school work tomorrow. Prescriptions: clindamycin HCL [Cleocin] 300 mg PO Q6HR 7 Days #28 cap Is patient prescribed a controlled substance at d/c from ED?: No Referrals: Jarad Love MD [Primary Care Provider] - 1-2 days Forms: Work/School Release Time of Disposition: 18:22
--- NOTE | 2021-09-29 18:00 | XR ---
EXAMINATION TYPE: XR mandible complete DATE OF EXAM: 09/29/2021 COMPARISON: NONE HISTORY: Dental pain. TECHNIQUE: 5 views FINDINGS: The mandibular ring appears intact. Temporomandibular joints are intact. No fracture seen. IMPRESSION: No fracture seen.
[2021-09-29] MEDS ORDERED: ACET/COD 300 MG/30 MG STARTER PACK 6 TAB BTL PO STA (18:06)
== END 2021-09-29 18:38 | disposition home or self-care (01) ==
LOC: EC 17:21
DX: K04.7 Periapical abscess without sinus (principal); S02.5XXA Fracture of tooth (traumatic), initial encounter for closed fracture; F17.200 Nicotine dependence, unspecified, uncomplicated; Z88.0 Allergy status to penicillin; Z88.2 Allergy status to sulfonamides
CPT/HCPCS: 70110; 99283

== ENCOUNTER → 2022-05-16 | Outpatient (CLI) | payer OTHER ==
--- NOTE | 2022-05-16 16:38 | US ---
EXAMINATION TYPE: US liver DATE OF EXAM: 05/16/2022 COMPARISON: CT 09/16/2017 CLINICAL HISTORY: R74.01 ELEVATED TRANSAMINASE LEVEL. Abnormal labs. TECHNIQUE: Multiple sonographic images of the right upper quadrant are obtained. FINDINGS: EXAM MEASUREMENTS: Liver Length: 11.9 cm Gallbladder Wall: .14 cm CBD: .4 cm Right Kidney: 9.8 x 4.9 x 4.3 cm Pancreas: Tail obscured by overlying bowel gas Liver: Echotexture is within normal limits no focal mass or dilated ducts. Gallbladder: No stones seen artifact seen but when rolled patient was not vis able. Evidence for sonographic Green's sign: No CBD: wnl Right Kidney: wnl IMPRESSION: No evidence for acute process. No evidence for steatosis or cirrhosis.
[2022-05-17 09:16] LABS: ALT 53 U/L (10-49); AST 34 U/L (14-35); African American GFR (CKD) 115.7 (60.0-200.0); Albumin 4.2 g/dL (3.8-4.9); Alkaline Phosphatase 42 U/L (41-126); Bilirubin, Conjugated <0.20 mg/dL (0.20-0.40); Blood Urea Nitrogen 8.3 mg/dL (9.0-27.0); Carbon Dioxide 23.5 mmol/L (20.0-27.5); Chloride 106 mmol/L (96-109); Globulin 1.5 g/dL (1.6-3.3); Glucose 80 mg/dL (70-110); Non-African American GFR(CKD) 99.8 (60.0-200.0); Potassium 4.2 mmol/L (3.5-5.5); Sodium 142 mmol/L (135-145); Total Protein 5.7 g/dL (6.2-8.2)
[2022-05-17 09:18] LABS: Hepatitis A Antibody IgM Nonreactive (Nonreactive); Hepatitis B Core IgM Nonreactive (Nonreactive); Hepatitis B Surface Antigen Nonreactive (Nonreactive); Hepatitis C IgG Antibody Nonreactive (Nonreactive)
[2022-05-17 09:31] LABS: Ceruloplasmin 14.4 mg/dL (20.0-60.0)
== END | disposition home or self-care (01) ==
LOC: RADUSWWP 15:41
PROVIDERS: ATTEND Internal Medicine
DX: R74.01 Elevation of levels of liver transaminase levels (principal)
CPT/HCPCS: 76705; 80053; 80074; 82103; 82104; 82248; 82390; 82525; 83516; 86038; 86645

== ENCOUNTER → 2023-03-25 | Outpatient (CLI) | payer BC, OTHER | END | disposition home or self-care (01) | LOC: LABWHC1 12:15 | PROVIDERS: ATTEND Pathology Anatomic Pathology & Clinical Pathology | DX: Z53.9 Procedure and treatment not carried out, unspecified reason (principal) ==

== ENCOUNTER → 2023-07-20 | Outpatient (CLI) | payer SELFPAY | END | disposition home or self-care (01) | LOC: LABWHC1 15:49 | PROVIDERS: ATTEND Internal Medicine Critical Care Medicine | DX: Z02.83 Encounter for blood-alcohol and blood-drug test (principal) | CPT/HCPCS: 36415 ==

== ENCOUNTER 2024-11-06 14:05 | Emergency (ER) | payer BC ==
[2024-11-06 14:12] VITALS: RESP 18
--- NOTE | 2024-11-06 14:41 | ED ---
General Adult HPI - General Chief complaint: Abdominal Pain Stated complaint: Abd issues Time Seen by Provider: 11/06/24 14:18 Source: patient, RN notes reviewed Mode of arrival: ambulatory Limitations: no limitations - History of Present Illness Initial comments: This is a 34-year-old male with no reported medical conditions presenting to the emergency room with complaints of intermittent abdominal pain and diarrhea over the past 4 to 5 months. Patient states that he will frequently experience loose stools and over the past few days he has had upwards of 5 loose stools per day that are nonbloody and not dark or sticky. He states that he will also occasionally [place] epigastric and right upper quadrant abdominal pain with mild radiation into his back. He denies fevers, chills, nausea, vomiting, urinary complaints. He states that he saw his primary care provider a month ago where laboratory testing was ordered and he was instructed follow-up in 4 months. He denies previous surgeries of his abdomen. Denies precipitating or modifying factors of the pain. Denies recent antibiotic use, recent travel or new medications. He has used Imodium at home that has reported to help with symptoms however states that he will still experience diarrhea. - Related Data Previous Rx's Medication Instructions Recorded clindamycin HCL [Cleocin] 300 mg PO Q6HR #40 cap 01/28/21 clindamycin HCL [Cleocin] 300 mg PO Q6HR 7 Days #28 cap 09/29/21 Allergies Allergy/AdvReac Type Severity Reaction Status Date / Time Penicillins Allergy Anaphylaxis Verified 11/06/24 14:07 Sulfa (Sulfonamide Allergy Anaphylaxis Verified 11/06/24 14:07 Antibiotics) Review of Systems ROS Statement: Those systems with pertinent positive or pertinent negative responses have been documented in the HPI. ROS Other: All systems not noted in ROS Statement are negative. Past Medical History Past Medical History: No Reported History Additional Past Medical History / Comment(s): kidney stones, adhd History of Any Multi-Drug Resistant Organisms: None Reported Past Surgical History: No Surgical Hx Reported Past Psychological History: Depression Smoking Status: Former smoker, Vaper Past Alcohol Use History: Occasional Past Drug Use History: Marijuana General Exam Limitations: no limitations Neck exam: Present: normal inspection. Absent: tenderness, meningismus, lymphadenopathy Respiratory exam: Present: normal lung sounds bilaterally. Absent: respiratory distress, wheezes, rales, rhonchi, stridor Cardiovascular Exam: Present: regular rate, normal rhythm, normal heart sounds. Absent: systolic murmur, diastolic murmur, rubs, gallop, clicks GI/Abdominal exam: Present: soft, tenderness (epigatric), normal bowel sounds. Absent: distended, guarding, rebound, rigid Extremities exam: Present: normal inspection, full ROM, normal capillary refill. Absent: tenderness, pedal edema, joint swelling, calf tenderness Back exam: Present: normal inspection Course Vital Signs 11/06/24 11/06/24 14:07 17:02 Temperature 97.9 F 98.4 F Pulse Rate 95 65 Respiratory 18 18 Rate Blood Pressure 151/97 137/98 O2 Sat by Pulse 98 96 Oximetry Medical Decision Making - Medical Decision Making Was pt. sent in by a medical professional or institution (KIMBER Villegas, AUDIOMETRIC TECHNICIAN, urgent care, hospital, or fci...) When possible be specific @ -No Did you speak to anyone other than the patient for history (EMS, parent, family, police, friend...)? What history was obtained from this source @ -No Did you review nursing and triage notes (agree or disagree)? Why? @ -I reviewed and agree with nursing and triage notes Were old charts reviewed (outside hosp., previous admission, EMS record, old EKG, old radiological studies, urgent care reports/EKG's, fci records)? Report findings @ -No old charts were reviewed Differential Diagnosis (chest pain, altered mental status, abdominal pain women, abdominal pain men, vaginal bleeding, weakness, fever, dyspnea, syncope, headache, dizziness, GI bleed, back pain, seizure, CVA, palpatations, mental health, musculoskeletal)? @ -Differential Abdominal Pain Men: Appendicitis, cholecystitis, diverticulosis, ischemic bowel, pancreatitis, hepatitis, UTI, gastroenteritis, AAA, incarcerated hernia, bowel obstruction, constipation, inflammatory bowel, hepatitis, peptic ulcer disease, splenic infarction, perforated viscus, testicular torsion, this is not meant to be an all-inclusive list EKG interpreted by me (3pts min.). @ -None X-rays interpreted by me (1pt min.). @ -None done CT interpreted by me (1pt min.). @ -None done U/S interpreted by me (1pt. min.). @ -None done What testing was considered but not performed or refused? (CT, X-rays, U/S, labs)? Why? @ -None What meds were considered but not given or refused? Why? @ -None Did you discuss the management of the patient with other professionals (professionals i.e. , PA, AUDIOMETRIC TECHNICIAN, lab, RT, psych nurse, social worker masters, scrap baler, teacher, railway patrol officer, correctional counselor/case manager)? Give summary @ -No Was smoking cessation discussed for >3mins.? @ -No Was critical care preformed (if so, how long)? @ -No Were there social determinants of health that impacted care today? How? (Homelessness, low income, unemployed, alcoholism, drug addiction, transportation, low edu. Level, literacy, decrease access to med. care, [place] [facility], rehab)? @ -No Was there de-escalation of care discussed even if they declined (Discuss DNR or withdrawal of care, Hospice)? DNR status @ -No What co-morbidities impacted this encounter? (DM, HTN, Smoking, COPD, CAD, Cancer, CVA, ARF, Chemo, Hep., AIDS, mental health diagnosis, sleep apnea, morbid obesity)? @ -None Was patient admitted / discharged? Hospital course, mention meds given and route, prescriptions, significant lab abnormalities, going to OR and other pertinent info. @ - Discharge. 34 male presenting with intermittent abdominal pain and diarrhea. Patient is well-appearing and no signs of distress. Abdominal examination revealed mild epigastric tenderness to palpation. Patient was offered medications for pain however he has declined. Laboratory testing grossly unremarkable. Ultrasound imaging reveals no acute process. Recommend that patient keep a food journal at home to determine if there are specific foods or times that may precipitate his chronic diarrhea. Recommend follow-up with primary care provider for further evaluation. Return parameters discussed. Case discussed with my attending Dr. Jimenez Undiagnosed new problem with uncertain prognosis? @ -No Drug Therapy requiring intensive monitoring for toxicity (Heparin, Nitro, Insulin, Cardizem)? @ -No Were any procedures done? @ -No Diagnosis/symptom? @ -diarrhea, unspecified abdominal pain Acute, or Chronic, or Acute on Chronic? @ -acute Uncomplicated (without systemic symptoms) or Complicated (systemic symptoms)? @ -uncomplicated Side effects of treatment? @ -No Exacerbation, Progression, or Severe Exacerbation? @ -No Poses a threat to life or bodily function? How? (Chest pain, [place], [place], pneumonia, PE, COPD, DKA, ARF, appy, cholecystitis, CVA, Diverticulitis, Homicidal, Suicidal, threat to staff... and all critical care pts) @ -No - Lab Data Result diagrams: 11/06/24 15:00 11/06/24 15:00 Lab Results 11/06/24 11/06/24 Range/Units 15:00 15:00 WBC 7.98 (4.50-10.00) 10*3/uL RBC 4.62 (4.40-5.60) 10*6/uL Hgb 14.8 (13.0-17.0) g/dL Hct 40.8 (39.6-50.0) % MCV 88.3 (80.0-97.0) fL MCH 32.0 (27.0-32.0) pg MCHC 36.3 (32.0-37.0) g/dL Plt Count 304 (140-440) 10*3/uL MPV 9.2 L (9.5-12.2) fL Immature Gran % (Auto) 0.9 % Neutrophils % 64.8 % Lymphocytes % 25.9 % Monocytes % 7.1 % Eosinophils % 0.4 % Basophils % 0.9 % Immature Gran # 0.07 H (0.00-0.04) 10*3/uL Neutrophils # 5.17 (1.80-7.70) 10*3/uL Lymphocytes # 2.07 (0.90-5.00) 10*3/uL Monocytes # 0.57 (0.20-1.00) 10*3/uL Eosinophils # 0.03 L (0.04-0.35) 10*3/uL Basophils # 0.07 (0.00-0.10) 10*3/uL Sodium 139 (137-145) mmol/L Potassium 4.2 (3.5-5.1) mmol/L Chloride 106 (98-107) mmol/L Carbon Dioxide 22 (22-30) mmol/L Anion Gap 11 mmol/L BUN 14 (9-20) mg/dL Creatinine 0.79 (0.66-1.25) mg/dL Est GFR (CKD-EPI)AfAm >90 (>60 ml/min/1.73 sqM) Est GFR (CKD-EPI)NonAf >90 (>60 ml/min/1.73 sqM) Glucose 108 H (74-99) mg/dL Calcium 9.8 (8.4-10.2) mg/dL Magnesium 2.2 (1.6-2.3) mg/dL Total Bilirubin 0.7 (0.2-1.3) mg/dL AST 28 (17-59) U/L ALT 36 (4-49) U/L Alkaline Phosphatase 52 (38-126) U/L Total Protein 7.1 (6.3-8.2) g/dL Albumin 4.7 (3.5-5.0) g/dL Lipase 119 (23-300) U/L Disposition Clinical Impression: Diarrhea, Intermittent abdominal pain Disposition: HOME SELF-CARE Condition: Good Instructions (If sedation given, give patient instructions): Abdominal Pain (ED) Additional Instructions: Please return to the Emergency Department if symptoms worsen or any other concerns. Is patient prescribed a controlled substance at d/c from ED?: No Referrals: Jarad Love DO [Primary Care Provider] - 1-2 days Laya Jones MD [STAFF PHYSICIAN] - 1-2 days Forms: Area PCPs Time of Disposition: 16:32
[2024-11-06 15:04] LABS: Basophils # (A) 0.07 10*3/uL (0.00-0.10); Basophils % (A) 0.9 %; Eosinophils # (A) 0.03 10*3/uL (0.04-0.35); Eosinophils % (A) 0.4 %; HCT 40.8 % (39.6-50.0); HGB 14.8 g/dL (13.0-17.0); Lymphocytes # (A) 2.07 10*3/uL (0.90-5.00); Lymphocytes % (A) 25.9 %; MCH 32.0 pg (27.0-32.0); MCHC 36.3 g/dL (32.0-37.0); MCV 88.3 fL (80.0-97.0); Monocytes # (A) 0.57 10*3/uL (0.20-1.00); Monocytes % (A) 7.1 %; Neutrophils # (A) 5.17 10*3/uL (1.80-7.70); Neutrophils % (A) 64.8 %; Platelet Count 304 10*3/uL (140-440); RBC 4.62 10*6/uL (4.40-5.60); RDW 11.4 % (11.5-14.5); WBC 7.98 10*3/uL (4.50-10.00)
[2024-11-06 15:14] LABS: ALT 36 U/L (4-49); AST 28 U/L (17-59); African American GFR (CKD) >90 (>60 ml/min/1.73 sqM); Albumin 4.7 g/dL (3.5-5.0); Alkaline Phosphatase 52 U/L (38-126); Anion Gap 11 mmol/L; Blood Urea Nitrogen 14 mg/dL (9-20); Calcium 9.8 mg/dL (8.4-10.2); Carbon Dioxide 22 mmol/L (22-30); Chloride 106 mmol/L (98-107); Glucose 108 mg/dL (74-99); Lipase 119 U/L (23-300); Magnesium 2.2 mg/dL (1.6-2.3); Non-African American GFR(CKD) >90 (>60 ml/min/1.73 sqM); Potassium 4.2 mmol/L (3.5-5.1); Sodium 139 mmol/L (137-145); Total Protein 7.1 g/dL (6.3-8.2)
--- NOTE | 2024-11-06 16:13 | US ---
EXAMINATION TYPE: US gallbladder DATE OF EXAM: 11/06/2024 COMPARISON: NONE CLINICAL INDICATION: Male, 34 years old with history of RUQ and epigastric ab pain, chronic diarrhea; RUQ pain TECHNIQUE: Grayscale and color Doppler imaging of the right upper quadrant was performed. FINDINGS: EXAM MEASUREMENTS: Liver Length: 15.9 cm Gallbladder Wall: .2 cm CBD: .3 cm Right Kidney: 10.6 x 4.2 x 4.9 cm FACILITY REHAB DIRECTOR NOTES: Pancreas: Obscured by bowel gas Liver: Increased attenuation Gallbladder: No stones seen Evidence for sonographic Green's sign: No CBD: wnl Right Kidney: No hydronephrosis or masses seen IMPRESSION: Unremarkable right upper quadrant ultrasound exam. [facility], , 11/06/2024 4:11 PM
[2024-11-06 17:07] VITALS: BP 137/98; PULSE 65; TEMP 98.4
== END 2024-11-06 17:05 | disposition home or self-care (01) ==
LOC: EC 14:05
DX: R19.7 Diarrhea, unspecified (principal); R10.13 Epigastric pain; F17.290 Nicotine dependence, other tobacco product, uncomplicated; Z88.0 Allergy status to penicillin; Z88.2 Allergy status to sulfonamides
CPT/HCPCS: 36415; 76705; 80053; 83690; 83735; 85025; 99284